=== PATIENT | female | born 1950 | race Caucasian/White ===

== ENCOUNTER → 2020-03-01 | Outpatient (CLI) | payer MEDICARE, OTHER | LOC: M.RAD 02-29 10:10 | PROVIDERS: ATTEND Family Medicine | DX: Z12.31 Encounter for screening mammogram for malignant neoplasm of breast (principal) ==

== ENCOUNTER → 2020-03-15 | Outpatient (CLI) | payer MEDICARE, OTHER | LOC: M.ULTRA 14:04 | PROVIDERS: ATTEND Family Medicine | DX: N63.10 Unspecified lump in the right breast, unspecified quadrant (principal); N63.20 Unspecified lump in the left breast, unspecified quadrant ==

== ENCOUNTER → 2020-05-31 | Outpatient (CLI) | payer MEDICARE, OTHER ==
[~2020-05-31] MED LIST: ASPIRIN EC81 M1 PO; CALCIUM 500+D1 EAC2 PO; FISH OIL 1,0001 EAC9 PO; FLONASE 0.05%50 MCG NARES; MEDROLDOSEPACK PO; NAPROSYN PO; NEURONTIN100 MG PO; SERTRALINE HCL100 MG PO; SINGULAIR 10 MG10 MG PO; THERA M PLUS T1 EAC2 PO; TRAMADOL 50 MG50 MG PO; TYLENOL EXTRA500 MG PO; VITAMIN E1000 UNIT PO
--- NOTE | 2020-06-19 15:24 | PAINCON ---
[address] [address] PAIN MANAGEMENT CONSULTATION Name: LEVY CHINCHILLA Room: [facility] K[facility]ERON NunoMisael#: [id number] Admission: 05/31/20 Attend Phys: Javier Beltrán MD Discharge: Date of : 50 Report #: [id number] THIS REPORT FOR: //name// cc: Shaun Borges DO Shaun Borges DO ~ CC: Shaun Beltrán DATE OF SERVICE: 05/31/2020 CHIEF COMPLAINT: Left hip pain. HISTORY: The patient is a 70-year-old female who has been referred to the pain clinic. She complains of pain in her left hip, which has been ongoing for about 6 weeks. She was involved in physical therapy. She has noted some increased pain and discomfort in her hip as well as in her knee. She has tried nonsteroidal anti-inflammatory medications. Meloxicam has caused some GI irritation. She has tried alternating ice, heat and has used gabapentin. Her hip pain has been problematic for the last 2-3 years. Walking stairs is problematic. Activity such as walking, bending and lifting are problematic as well. Activities of daily living are somewhat truncated because of the pain. She rates her pain today as a 3/10. She has had some bursitis associated with her left hip. Has had a cortisone shot. Does use the handrails when she is going up and downstairs. She also has noted some stiffness in the mid to upper back area. ALLERGIES: PENICILLIN, SULFA. 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 CURRENT MEDICATIONS: Naprosyn 220 mg, Tylenol 500 mg, aspirin 81 mg, calcium 1000 mg, fish oil 1000 mg, Flonase 50 mcg, gabapentin 100 mg morning and 300 mg evening, Singulair 10 mg, Prilosec 40 mg, Zoloft 50 mg, vitamin D2 50,000 units weekly, Thera-M 1 tablet. PAST MEDICAL HISTORY: Hypertension, ulcers, emotional problems. PAST SURGICAL HISTORY: Appendectomy, 1986, sinus surgery 2012, granuloma from the roof of the mouth 2011. SOCIAL HISTORY: She is retired, has not worked since 2011. PAIN CLINIC ASSESSMENT AND PQRS: 1. Height 5 feet 4 inches, weight 214 pounds, BMI is 36. 2. Vital Signs: Blood pressure 144/85, heart rate 68, respiratory rate 16, room air saturation 98%, temperature 97.7. 3. Pain intensity, 3/10. 4. Fall history. The patient has not fallen in the last 3 [place] [address] PAIN MANAGEMENT CONSULTATION Name: LEVY CHINCHILLA Room: [facility]#: [id number] Admission: 05/31/20 Attend Phys: Javier Beltrán MD Discharge: Date of : 50 Report #: [id number] 5. Blood thinner. The patient is not on a blood thinning medication. 6. Hypertension. The patient is not being treated for hypertension. 7. Opioids greater than 6 weeks. The patient is not on opioid regimen. 8. Risk assessment tool, low for opioid use. 9. Functional assessment tool, reviewed. <ELECTRONICALLY SIGNED> By: Javier Beltrán MD 06/19/20 1524 [id number]. Dominic Beltrán MD /[facility]
== END ==
LOC: M.PC 11:10
PROVIDERS: ATTEND Anesthesiology Pain Medicine
DX: M25.552 Pain in left hip (principal); I10 Essential (primary) hypertension; Z79.899 Other long term (current) drug therapy

== ENCOUNTER → 2020-06-22 | Outpatient (CLI) | payer MEDICARE, OTHER | LOC: M.MRI 06-18 13:30 | PROVIDERS: ATTEND Orthopaedic Surgery | DX: S76.012A Strain of muscle, fascia and tendon of left hip, initial encounter (principal); M47.816 Spondylosis without myelopathy or radiculopathy, lumbar region; M76.02 Gluteal tendinitis, left hip; X58.XXXA Exposure to other specified factors, initial encounter; Y93.89 Activity, other specified; Y92.89 Other specified places as the place of occurrence of the external cause; Y99.8 Other external cause status ==

== ENCOUNTER → 2020-10-16 | Outpatient (CLI) | payer OTHER | LOC: M.RAD 15:40 | PROVIDERS: ATTEND Orthopaedic Surgery | DX: M17.11 Unilateral primary osteoarthritis, right knee (principal); M25.561 Pain in right knee; M85.861 Other specified disorders of bone density and structure, right lower leg; M25.461 Effusion, right knee ==

== ENCOUNTER → 2020-11-14 | Outpatient (CLI) | payer OTHER | LOC: M.RAD 11:03 | PROVIDERS: ATTEND Family Medicine | DX: M85.88 Other specified disorders of bone density and structure, other site (principal) ==

== ENCOUNTER → 2021-03-05 | Outpatient (CLI) | payer OTHER | LOC: M.MRI 11:30 | PROVIDERS: ATTEND Orthopaedic Surgery | DX: S83.281A Other tear of lateral meniscus, current injury, right knee, initial encounter (principal); S83.241A Other tear of medial meniscus, current injury, right knee, initial encounter; M17.11 Unilateral primary osteoarthritis, right knee; M25.461 Effusion, right knee; R60.9 Edema, unspecified; X58.XXXA Exposure to other specified factors, initial encounter; Y93.9 Activity, unspecified; Y92.89 Other specified places as the place of occurrence of the external cause; Y99.8 Other external cause status ==

== ENCOUNTER → 2021-03-14 | Outpatient (CLI) | payer OTHER | LOC: M.RAD 10:00 | PROVIDERS: ATTEND Internal Medicine Gastroenterology | DX: K44.9 Diaphragmatic hernia without obstruction or gangrene (principal); R13.10 Dysphagia, unspecified ==

== ENCOUNTER → 2021-03-25 | Outpatient (CLI) | payer OTHER | LOC: M.RAD 10:00 | PROVIDERS: ATTEND Internal Medicine Gastroenterology | DX: R13.10 Dysphagia, unspecified (principal) ==

== ENCOUNTER → 2021-03-26 | Outpatient (CLI) | payer OTHER ==
[~2021-03-26] MED LIST changes: +BELSOMRA10 MG PO; +LEXAPRO 10 MG T10 M1 PO; +MELOXICAM15 MG PO; +OMEPRAZOLE 20 M20 M1 PO
--- NOTE | 2021-04-12 21:16 | PF ---
[address] [address] PULMONARY FUNCTION REPORT Name: AMORDEJON BARCLAY Room: [facility].#: [id number] Admission: 03/26/21 Attend Phys: Shaun Borges DO Discharge: Date of : 50 Report #: [id number] THIS REPORT FOR: cc: Shaun Borges, Maxx Stewart MD ~ DATE OF VISIT: 03/26/2021 PULMONARY FUNCTION TEST The FEV1/FVC ratio is normal at 78% with an FVC normal at 92%. The FEV1 is also normal at 94% and FEF 25-75 is normal at 80%. After the administration of a bronchodilator, there is a 37% increase in the FEF 25-75. There is no significant increase in the other values mentioned here. The patient's post-bronchodilator FEV1 is 2.29 liters. The flow volume loop is concave upwards. The total lung capacity is normal at 83% with a residual volume mildly decreased to 61%. The DLCO as adjusted for hemoglobin is decreased to 58%. IMPRESSION: 1. The spirometry is normal; however, a flow volume loop concave upwards and a 37% increase in 25-75 after the administration of a bronchodilator are noted. These could be normal variants or could represent minimal obstruction. Clinical correlation is advised. 2. There is an isolated reduction in residual volume to 61%. The total lung capacity, however, is normal. This could also be a normal variant or could represent mild restriction. 3. The DLCO as adjusted for hemoglobin is decreased to 58%. <ELECTRONICALLY SIGNED> By: Maxx Dhillon MD 04/12/216 1108 1234Adouglas Dhillon MD /nt
== END ==
LOC: M.PUL 09:58
PROVIDERS: ATTEND Family Medicine
DX: R05 Cough (principal)

== ENCOUNTER → 2021-04-10 | Outpatient (CLI) | payer OTHER ==
[2021-04-10 10:44] LABS: ABSOLUTE BASOPHILS 0.1 thou/uL (0.0-0.2); ABSOLUTE EOSINOPHILS 0.2 thou/uL (0.0-0.7); ABSOLUTE LYMPHOCYTES 1.8 thou/uL (0.8-5.3); ABSOLUTE MONOCYTES 0.4 thou/uL (0.0-1.2); ABSOLUTE NEUTROPHILS 4.9 thou/uL (1.6-8.1); BASOPHILS 0.7 %; EOSINOPHILS 2.6 %; HEMATOCRIT 41.6 % (37.0-47.0); HEMOGLOBIN 13.6 gm/dL (12.0-15.0); LYMPHOCYTES 23.8 %; MCH 29.4 pg (26.0-34.0); MCHC 32.7 g/dL (28.0-37.0); MCV 89.9 fL (80.0-100.0); MONOCYTES 6.1 %; NUCLEATED RBCS 0 /100WBC; PLATELET COUNT* 151 thou/uL (150-400); POLYS 66.8 %; RBC 4.63 mil/uL (4.20-5.00); RDW-CV 13.9 % (10.5-14.5); WBC 7.4 thou/uL (4.0-11.0)
[2021-04-10 10:50] LABS: URINE BILIRUBIN NEGATIVE (Negative); URINE BLOOD NEGATIVE (Negative); URINE CLARITY CLEAR; URINE COLOR YELLOW; URINE GLUCOSE-RANDOM NEGATIVE (Negative); URINE KETONES TRACE (Negative); URINE LEUKOCYTES-REFLEX NEGATIVE (Negative); URINE NITRITE-REFLEX NEGATIVE (Negative); URINE PROTEIN NEGATIVE (Negative); URINE SPECIFIC GRAVITY >= 1.030 (1.005-1.030); URINE UROBILINOGEN 0.2 E.U./dl (0.2-1.0)
[2021-04-10 10:54] LABS: INR 0.9
[2021-04-10 10:57] LABS: ALBUMIN 3.8 g/dL (3.4-5.0); CREATININE 1.1 mg/dL (0.6-1.3); POTASSIUM 5.1 mmol/L (3.5-5.1); TOTAL BILIRUBIN 0.4 mg/dL (<0.1-1.0); TOTAL PROTEIN 7.5 g/dL (6.4-8.2)
--- NOTE | 2021-04-10 13:11 | EKG ---
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
== END ==
LOC: M.LAB 04-09 08:23
PROVIDERS: ATTEND Orthopaedic Surgery
DX: Z01.818 Encounter for other preprocedural examination (principal); Z01.812 Encounter for preprocedural laboratory examination; M17.11 Unilateral primary osteoarthritis, right knee

== ENCOUNTER 2021-04-16 10:13 | Observation (INO) | payer OTHER ==
[~2021-04-16] VITALS: Ht 162.6 cm; Wt 99.3 kg
[2021-04-23 11:11] LABS: CALCIUM 9.5 mg/dL (8.5-10.1)
--- NOTE | 2021-04-23 13:59 | NUR ---
PT IS 71 Y/O FEMALE ADMITTED TO PACU S/P RIGHT TOTAL KNEE ARTHROPLASTY. PT IS AXOX4. AFEBRILE. ON 3L PER NC AFTER SURGERY. PT NOW RATES HER PAIN IN HER RIGHT KNEE "ACHING" AND AT A 3.5/10. PT HAS RCV'D COMBO OF IV AND PO PAIN MEDS IN PACU. PT'S ADMISSION HX AND ASSESSMENT COMPLETE. PT INSTRUCTED ON FALL PRECAUTIONS. PLAN TO STAY IN RECOVERY THIS EVENING. DAUGHTER DEVYN HAS BEEN UPDATED VIA PHONE. ICE MAN IN PLACE W/MEDIUM SIZED HEMOVAC IN PLACE. [facility] NOTED TO LEFT LEG AND BILATERAL FOOT PUMPS IN PLACE. WILL CONTINUE TO MONITOR PT CLOSELY.
[2021-04-23 15:44] VITALS: BP 115/64
[2021-04-23 17:40] VITALS: BP 134/75
[2021-04-23 20:00] VITALS: BP 119/75
[2021-04-24] VITALS (9 sets, daily range): BP systolic 113–136; BP diastolic 68–78
[2021-04-24 02:26] LABS: HEMATOCRIT 38.6 % (37.0-47.0); HEMOGLOBIN 12.7 gm/dL (12.0-15.0)
[2021-04-24] MEDS ORDERED: XARELTO10 MG PO (08:09)
[2021-04-24] MEDS ORDERED: PERCOCET 5-3251 EACH PO (08:10)
--- NOTE | 2021-04-24 15:30 | NUR ---
ASSUMED CARE OF PT THIS AM AT 0730. PT. HAD PT THIS AM AND DID WELL. PAIN CONTROLLED WELL AFTER PO PAIN MEDS. PT. HAD CPM ON [id number] AND TOLERATED WELL -5 DEGREES TO 75 DEGREES. ATE 100% OF BREAKFAST AND LUNCH. ASSISTED PT TO BATHROOM AT 1445 AND SHE VOIDED MODERATE AMT--USED THE WALKER WITH STAND-BY ASSIST. DISMISSAL INST REVIEWED WITH PT. AND DAUGHTER, DEVYN. BOTH VERBALIZE UNDERSTANDING. LEFT WITH CPM, POLAR CARE, WALKER (PT'S OWN), AND IS IN STABLE CONDITION.
--- NOTE | 2021-04-24 15:58 | NUR ---
Pt is A&O. Resides at home with . Independent. Pt has a walker that she can use. Pt discharging to home today with [facility], faxed HH referral. Cm checked the cost of Pt's Xarelto, it will be $18.72. Pt to discuss stool riser with HH
--- NOTE | 2021-04-24 22:00 | OP ---
[facility] [address] [place] [address] OPERATIVE REPORT Name: DEJON CHINCHILLA Room: [address] Sg Molina#: [id number] Admission: 04/23/21 Attend Phys: Jian Colvin Discharge: 04/24/21 Date of : 50 Report #: [id number] THIS REPORT FOR: cc: Shaun Borges Adam J DO Greiner, Robert F. II DO ~ DATE OF SURGERY: 04/23/2021 PREOPERATIVE DIAGNOSIS: Right knee osteoarthritis. POSTOPERATIVE DIAGNOSIS: Right knee osteoarthritis. PROCEDURE: Right total knee arthroplasty. SURGEON: Guanakito Crowley II, DO DIRECTOR OF BUSINESS SERVICES: XAVIER Miller. ANESTHESIA: General endotracheal. ESTIMATED BLOOD LOSS: 50 mL. ANTIBIOTICS: Ancef preoperatively. DRAINS: Medium Hemovac. COMPLICATIONS: None. CONDITION: The patient stable to recovery room. IMPLANTS: Listed in operative record and progress note. BRIEF HISTORY: The patient was seen in the preoperative area, preoperative H and P was performed. Site was marked, questions were answered. Risks and benefits were discussed with the patient in detail about surgery. The patient wished to proceed assuming all risks. DESCRIPTION OF PROCEDURE: The patient was taken to the operative suite and placed supine on the operating table under appropriate anesthesia. A well-padded tourniquet was applied to the upper thigh, which was inflated to 300 mmHg after gravity exsanguination. The operative knee was sterilely prepped and draped. She was given a midline incision, was carried out to subcutaneous tissues. A medial parapatellar arthrotomy was performed, carried down to bone. Patella was then everted and excess soft tissue was removed around the femur. The femoral cutting block was then applied, checked with a drop madeleine for rotation alignment, pinned in appropriate position [place] [address] OPERATIVE REPORT Name: DEJON CHINCHILLA Room: [address] Sg Molina#: [id number] Admission: 04/23/21 Attend Phys: Jian Colvin Discharge: 04/24/21 Date of : 50 Report #: [id number] 4-in-1 cutting block was then applied, checked for rotation alignment, pinned in appropriate position, appropriate cuts were made. The tibia was exposed. Excess meniscus was removed. Retractor was placed on collateral ligaments. The tibial cutting block was then applied in appropriate position, checked with a drop madeleine for rotation alignment and slope and appropriate cut was made. Tibial bone was removed, tibial base plate was then applied, checked for rotation alignment with the drop madeleine and pinned in appropriate position. The femur was then applied and box cut was reamed. This was trialed with appropriate spacer which showed excellent fit and fill and excellent stability through all range of motion. The patella was reamed in appropriate fashion, sized to appropriate size. Three peg holes were drilled and it was then trialed and showed excellent flexion and extension, excellent tracking of the patellofemoral groove. These trials were removed. The tibia was punched in appropriate fashion. Bone ends were cleansed with Pulsavac irrigation and cement was mixed and applied in final implants. These were then malleted in position and held the knee in extension and compressed to allow the cement to cure. After it cured, excess was removed with a Huntington and osteotome. The wound was then copiously irrigated and a final spacer was malleted into position. Tourniquet was deflated. Hemostasis was maintained with electrocautery. The pain cocktail was injected. Medium Hemovac drain was applied. The capsule was closed with #2 FiberWire and #1 Vicryl in lomyly-ju-rjnko fashion. Skin was closed with 2-0 Vicryl and a running 3-0 Monocryl. Dermabond dressing applied. Jaylen wrap and PolarCare applied. The patient transported to recovery room in stable condition. Counts were correct throughout the procedure. <ELECTRONICALLY SIGNED> By: Guanakito Crowley II, DO 04/24/212199 10 2034Rromel Crowley II, DO /nt
== END 2021-04-24 15:30 | disposition home or self-care (01) ==
LOC: M.ORTHSURG 10:13 → M.TBA 04-23 10:21 → M.ORTHSURG 04-23 15:04 → M.TBA 04-24 15:30
PROVIDERS: Orthopaedic Surgery; ADMIT Internal Medicine; ATTEND Internal Medicine
DX: M17.11 Unilateral primary osteoarthritis, right knee (principal); Z20.822 Contact with and (suspected) exposure to COVID-19; K21.9 Gastro-esophageal reflux disease without esophagitis; G47.33 Obstructive sleep apnea (adult) (pediatric); I48.91 Unspecified atrial fibrillation; Z79.899 Other long term (current) drug therapy

== ENCOUNTER → 2021-05-08 | Outpatient (CLI) | payer OTHER ==
[~2021-05-08] MED LIST changes: +PERCOCET 5-3251 EACH PO; +XARELTO10 MG PO
== END ==
LOC: M.RAD 14:22
PROVIDERS: ATTEND Orthopaedic Surgery
DX: M25.461 Effusion, right knee (principal); M17.11 Unilateral primary osteoarthritis, right knee; Z96.651 Presence of right artificial knee joint